=== PATIENT | male | born 1970 | race Caucasian/White ===

== ENCOUNTER 2021-10-18 06:10 | Day surgery (SDC) | payer BC ==
[~2021-10-18 06:10] MED LIST: Acetaminophen 325 MG Tab PO SCH; Lactated Ringers 1,000 ML IV SCH; Lidocaine 1%/Sod Bicarbonate in NS 8.4% 1 ML Syringe IDERM PRN; Pregabalin 25 MG Cap PO SCH; Sodium Chloride 0.9% 10 ML Syringe FLUSH PRN; oxyCODONE ER 10 MG TAB.ER PO SCH
[2021-10-18] MEDS ORDERED: Vancomycin 1 GM SDV ONE (06:19)
[2021-10-18] MEDS ORDERED: Rocuronium 50 MG/5 ML Vial ONE (06:24)
[2021-10-18] MEDS ORDERED: Propofol 200 MG/20 ML SDV ONE (06:24)
[2021-10-18] MEDS ORDERED: Ondansetron 4 MG/2 ML SDV ONE (06:24)
[2021-10-18] MEDS ORDERED: fentaNYL 100 MCG/2 ML SDV ONE ×2 (06:25→08:45)
[2021-10-18] MEDS ORDERED: Lidocaine 1% 6 ML ONE (06:25)
[2021-10-18] MEDS ORDERED: Midazolam 1 MG/ML 2 ML SDV ONE (06:25)
[2021-10-18] MEDS ORDERED: Ropivacaine 0.5% 5 MG/ML 30 ML SDV ONE (06:35)
[2021-10-18] MEDS ORDERED: EPINEPHrine 1 MG/ML SDV ONE (06:35)
--- NOTE | 2021-10-18 06:43 | PCM.PREANE ---
Preanesthetic Assessment - Procedure Proposed Procedure: left shoulder reverse total shoulder - Anesthesia/Transfusion/Family Hx Anesthesia History: Prior Anesthesia Without Reaction Family History of Anesthesia Reaction: No Transfusion History: No Prior Transfusion(s) - Review of Systems General: No Symptoms Pulmonary: No Symptoms Cardiovascular: No Symptoms Gastrointestinal: No Symptoms Neurological: No Symptoms Other: Reports: None - Physical Assessment NPO Status Date: 10/17/21 NPO Status Time: 20:00 Weight: 109.316 kg ASA Class: 2 Mental Status: Alert & Oriented x3 Airway Class: Mallampati = 3 Dentition: Reports: [place](s) Thyro-Mental Finger Breadths: 2 Mouth Opening Finger Breadths: 2 ROM/Head Extension: Limited/Partial (neck pain) Lungs: Clear to Auscultation, Normal Respiratory Effort Cardiovascular: Regular Rate, Regular Rhythm - Imaging/EKG Impressions: EKG NSR rate 80 - Allergies Allergies/Adverse Reactions: Allergies Allergy/AdvReac Type Severity Reaction Status Date / Time cefaclor Allergy Cannot Verified 10/17/21 18:23 Remember - Anesthesia Plan Pre-Op Medication Ordered: None PreAnesthesia Questionnaire HEENT History: Reports: Impaired Vision, Sinusitis, Other (See Below) Other HEENT History: impacted cerumen, left otitis cerumen, wears glasses Cardiovascular History: Reports: High Cholesterol, Other (See Below) Other Cardiovascular History: palpitation Respiratory History: Reports: Other (See Below) Other Respiratory History: URI, bronchitis Gastrointestinal History: Reports: GERD Genitourinary History: Reports: UTI, Recurrent [employer] History: Reports: None Musculoskeletal History: Reports: Other (See Below) Other Musculoskeletal History: arthralgia, arthritis, left hip pain, myalgias, bilateral shoulder pain Neurological History: Reports: Headaches, Chronic, Other (See Below) Other Neuro History: neck pain Psychiatric History: Reports: None Endocrine/Metabolic History: Reports: Hypothyroidism Hematologic History: Reports: None Immunologic History: Reports: None Oncologic (Cancer) History: Reports: None Dermatologic History: Reports: Other (See Below) Other Dermatologic History: delayed wound healing, herpes zoster - Infectious Disease History Infectious Disease History: Reports: None - Past Surgical History Head Surgeries/Procedures: Reports: None Cardiovascular Surgical History: Reports: None Respiratory Surgical History: Reports: None GI Surgical History: Reports: None Female Surgical History: Reports: None Male Surgical History: Reports: None Endocrine Surgical History: Reports: None Neurological Surgical History: Reports: Lumbar Spine Musculoskeletal Surgical History: Reports: None Oncologic Surgical History: Reports: None Dermatological Surgical History: Reports: None - SUBSTANCE USE Tobacco Use Status *Q: Current Every Day Tobacco User Tobacco Use Within Last Twelve Months: Snuff/Dip Second Hand Smoke Exposure: No Days Per Week of Alcohol Use: 1 Number of Drinks Per Day: 2 Total Drinks Per Week: 2 Recreational Drug Use History: No - HOME MEDS Home Medications: Home Meds Aspirin [Aspirin EC] 325 mg PO DAILY #30 tablet.dr 10/17/21 [Rx] Cholecalciferol (Vitamin D3) [Vitamin D3] 5,000 unit PO DAILY 10/17/21 [History] Cyclobenzaprine [Flexeril] 10 mg PO BID PRN #20 tab 10/17/21 [Rx] Multivitamin 1 tab PO DAILY 10/17/21 [History] SUMAtriptan succinate [Imitrex] 50 mg PO ASDIRECTED PRN 10/17/21 [History] oxyCODONE 5 - 10 mg PO Q4H PRN #40 tab 10/17/21 [Rx] - CURRENT (IN HOUSE) MEDS Current Meds: Current Medications Acetaminophen (Acetaminophen 325 Mg Tab) 975 mg PO ONETIME DAVID Stop: 10/18/21 12:00 Lactated Ringer's (Ringers, Lactated) 1,000 mls @ 125 mls/hr IV ASDIRECTED DAVID Stop: 10/18/21 23:00 Vancomycin HCl 1 gm/Vancomycin HCl 500 mg/ Sodium Chloride 500 mls @ 333 mls/hr IV PREPRO ONE Stop: 10/18/21 08:30 Lidocaine/Sodium Bicarbonate (Lidocaine 1%/Sod Bicarbonate In Ns 8.4% 1 Ml Syringe) 0.25 ml IDERM ONETIME PRN PRN Reason: Prior to IV Start Stop: 10/18/21 18:00 Oxycodone HCl (Oxycodone Er 10 Mg Tab.Er) 10 mg PO ONETIME DAVID Stop: 10/18/21 12:00 Pregabalin (Pregabalin 25 Mg Cap) 50 mg PO ONETIME DAVID Stop: 10/18/21 12:00 Sodium Chloride (Sodium Chloride 0.9% 10 Ml Syringe) 10 ml FLUSH ASDIRECTED PRN PRN Reason: Keep Vein Open Stop: 10/18/21 18:00 Discontinued Medications Epinephrine HCl (Epinephrine 1 Mg/Ml Sdv) Confirm Administered Dose 1 mg .ROUTE .STK-MED ONE Stop: 10/18/21 06:36 Fentanyl (Fentanyl 100 Mcg/2 Ml Sdv) Confirm Administered Dose 100 mcg .ROUTE .STK-MED ONE Stop: 10/18/21 06:26 Lidocaine HCl (Xylocaine-Mpf 1%) Confirm Administered Dose 6 mls @ as directed .ROUTE .STK-MED ONE Stop: 10/18/21 06:26 Midazolam HCl (Midazolam 1 Mg/Ml 2 Ml Sdv) Confirm Administered Dose 2 mg .ROUTE .STK-MED ONE Stop: 10/18/21 06:26 Ondansetron HCl (Ondansetron 4 Mg/2 Ml Sdv) Confirm Administered Dose 4 mg .ROUTE .STK-MED ONE Stop: 10/18/21 06:25 Propofol (Propofol 200 Mg/20 Ml Sdv) Confirm Administered Dose 200 mg .ROUTE .STK-MED ONE Stop: 10/18/21 06:25 Rocuronium [place] (Rocuronium 50 Mg/5 Ml Vial) Confirm Administered Dose 50 mg .ROUTE .STK-MED ONE Stop: 10/18/21 06:25 Ropivacaine (Ropivacaine 0.5% 5 Mg/Ml 30 Ml Sdv) Confirm Administered Dose 30 ml .ROUTE .STK-MED ONE Stop: 10/18/21 06:36 Tranexamic Acid (Tranexamic Acid 1,000 Mg/10 Ml Amp) Confirm Administered Dose 1,000 mg .ROUTE .STK-MED ONE Stop: 10/18/21 06:20 Vancomycin HCl (Pharmacy To Dose - Vancomycin) 1 dose .XX ONETIME ONE Stop: 10/17/21 15:52 Vancomycin HCl (Vancomycin 1 Gm Sdv) Confirm Administered Dose 1 gm .ROUTE .STK- MED ONE Stop: 10/18/21 06:20
[2021-10-18] MEDS ORDERED: Vancomycin 1 GM, Vancomycin 500 MG in Sodium Chloride 0.9% 500 ML IV ONE (07:00)
[2021-10-18] MEDS ORDERED: ceFAZolin 1 GM Vial ONE (07:32)
[2021-10-18] MEDS ORDERED: Lactated Ringers 1,000 ML ONE (08:18)
[2021-10-18] MEDS ORDERED: ePHEDrine 50 MG/ML SDV ONE (08:29)
[2021-10-18] MEDS ORDERED: Bupivacaine 0.25% 10 ML SDV ONE (08:46)
[2021-10-18] MEDS ORDERED: fentaNYL 100 MCG/2 ML SDV IVPUSH PRN (09:13)
--- NOTE | 2021-10-18 09:14 | PCM.POSTAN ---
POST ANESTHESIA ASSESSMENT - MENTAL STATUS Mental Status: Alert, Oriented - RESPIRATORY Respiratory Status: Respiratory Rate WNL, Airway Patent, O2 Saturation Stable, Supplemental Oxygen - CARDIOVASCULAR CV Status: Pulse Rate WNL, Blood Pressure Stable - GASTROINTESTINAL GI Status: No Symptoms - PAIN Pain Score: 0 - POST OP HYDRATION Hydration Status: Adequate & Stable - OBSERVATIONS Free Text/Narrative:: no anesthesia complications noted
--- NOTE | 2021-10-18 09:15 | CR ---
Left shoulder: 3 views of the left shoulder were obtained. Study was obtained in the operating room utilizing C-arm device. Study shows placement of a reverse left shoulder prosthesis. Underlying bony structure shows nothing acute. Inferior spurring is noted within the acromioclavicular joint. Fluoroscopy time given as 2.8 seconds. Impression: 1. Procedural study as described above. Diagnostic code #2
--- NOTE | 2021-10-18 09:19 | PCM.SN.2 ---
- Free Text/Narrative Note: Date: 10/18 Time Out:0658 Start: 657 Stop: 703 Current Procedure: Left interscalene block under US guidance for postoperative pain control requested by Dr. Lea. Patient chart reviewed, risk/benefits discussed with patient, consent obtained. Patient positioned supine, monitors/alarms on, oxygen placed via nasal cannula at 2 LPM. IV sedation administered: Versed 2 mg IV, Fentanyl 100 mcg IV given in preop prior to block placement. Left shoulder prepped with two chloropreps. Sterile drapes placed with aseptic technique noted. Under US guidance, right subclavian artery visualized along with the right brachial plexus. Plexus followed up to C6 cricoid level, and area localized with 2mls of 1% lidocaine. 22gauge 2 inch stimiplex needle advanced under US with 0.8mV with stimulation of biceps noted. Good stimulation noted with decreased voltage and absent at 0.3mVs. 1ml of Normal Saline injected with loss of stimulation noted to confirm needle not placed intraneurally. Incremental dosing of 5mls with negative aspiration noted prior to each injection of 0.5% ropivacaine with 1:200,000 epinephrine. Total volume=30mls. Please refer to nurses noted for vital signs. Ephraim Max CRNA
[2021-10-18] MEDS ORDERED: oxyCODONE 5 MG Tab PO PRN (09:53)
[2021-10-18] MEDS ORDERED: Cyclobenzaprine 10 MG Tab PO PRN (09:54)
--- NOTE | 2021-10-18 11:29 | CR ---
Left shoulder: Single AP view of the left shoulder was obtained. Comparison: Prior operative study performed on the same day (9:28 AM). Reverse left shoulder prosthesis is seen. Prosthesis appears aligned. Inferior spurring is seen within the acromioclavicular joint. No acute osseous abnormality is appreciated. Impression: 1. Satisfactory postoperative radiographic appearance of recently placed left shoulder prosthesis. 2. Inferior spurring within the acromioclavicular joint. Diagnostic code #2
[2021-10-18 12:23] VITALS: BP 137/88; PULSE 78
--- NOTE | 2021-10-18 14:22 | PCM48HPAN ---
Post Anesthesia Note - EVALUATION WITHIN 48HRS OF ANESTHETIC Vital Signs in Normal Range: Yes Patient Participated in Evaluation: Yes Respiratory Function Stable: Yes Airway Patent: Yes Cardiovascular Function Stable: Yes Hydration Status Stable: Yes Pain Control Satisfactory: Yes Nausea and Vomiting Control Satisfactory: Yes Mental Status Recovered: Yes Vital Signs: Last Vital Signs Temp 36.8 C 10/18/21 12:15 Pulse 78 10/18/21 12:15 Resp 16 10/18/21 12:15 BP 137/88 10/18/21 12:15 Pulse Ox 95 10/18/21 12:15 - COMMENTS/OBSERVATIONS Free Text/Narrative:: no anesthesia complications noted
--- NOTE | 2021-10-28 16:45 | PCM.OPNOTE ---
- General Post-Op/Procedure Note Date of Surgery/Procedure: 10/18/21 Operative Procedure(s): left reverse total shoulder arthroplasty Pre Op Diagnosis: left shoulder osteoarthrosis Post-Op Diagnosis: Same Anesthesia Technique: General ET Tube, Regional Block Primary Surgeon: Abdulkadir Lea Anesthesia Provider: Ephraim Max Channel Director: Sondra Rehman Channel Director: Tena Cedeno EBL in mLs: 150 Complications: None Condition: Good Free Text/Narrative:: 11 06 36+2
--- NOTE | 2021-10-29 08:37 | OR ---
DATE OF OPERATION: 10/18/2021 SURGEON: Abdulkadir Lea MD OPERATION PERFORMED: Left reverse total shoulder arthropathy. PREOPERATIVE DIAGNOSIS: Left shoulder osteoarthrosis. POSTOPERATIVE DIAGNOSIS: Left shoulder osteoarthrosis. ANESTHESIA: General endotracheal intubation with regional interscalene block. ANESTHESIA PROVIDER: Ephraim Max CRNA ASSISTANTS: Sondra Rehman PA-C and Tena Cedeno LPN. ESTIMATED BLOOD LOSS: 150 mL. COMPLICATIONS: None. CONDITION: Stable. IMPLANTS: 1. [place] size 12 reverse humeral stem. 2. [place] size 28 mm concentric baseplate. 3. Lo size 36, +2 glenosphere. DESCRIPTION OF PROCEDURE: The patient was identified in the preoperative holding area. Proper site was marked and identified by the surgeon. The patient was taken back to operating theater where after anesthesia the patient's left upper extremity was sterilely prepped and draped in the usual sterile fashion. OR time-out was performed. The patient received 2 g IV Ancef. He was placed in reverse Trendelenburg position. Standard deltopectoral incision was made. This was taken down to the cephalic vein. Cephalic vein was retracted laterally with the deltoid. Clavipectoral fascia was incised. Conjoined tendon was retracted medially. Anterior humeral circumflex vessels were ligated. Attention was turned to the biceps. A #2 FiberWire was used for biceps tenodesis at the level of the pectoralis. The biceps tendon was resected proximal to this all the way back to the glenoid. Peel down of the subscapularis tendon was done, and the humeral head was dislocated. Humeral head cut was completed and found to be adequate. Attention was turned to the glenoid. Anterior and posterior glenoid retractors were placed. Circumferential removal of the labrum was done as well as a partial capsulectomy. Guide pin was placed in a center-center position with roughly 5 degree inferior tilt. The 28 mm concentric reamer was used until there was a good smile sign. At this time, guide pin was removed. Central screw hole was measured, and the 28 mm concentric baseplate was compressed using the central compression screw and had adequate bite. Inferior and superior locking screws were then placed in divergent fashion. A 36, +2 glenosphere was then impacted into place. Attention was turned to the humerus. Starter awl was placed down the canal, and then the canal reamers were done up to a size 12, and then broaches were done up to a size 12, which was found to be rotationally and vertically stable. Calcar planer was then utilized. Trial implants for a 4 mm poly and 2 mm base were then trialed, had adequate worship of tension on the deltoid as well as conjoined tendon with full range of motion. No signs of instability. C-arm fluoroscopy showed implants to be well seated with no signs of fracture. At this time, trial implants were removed. The size 12 stem was then opened on the back table with the 4 mm polyethylene and a 2 mm construct. These were impacted into place. Shoulder was relocated. At this time, 1 L pulse lavage irrigation with Ancef was irrigated through the shoulder along with 400 mL of IrriSept irrigation. Topical tranexamic acid and vancomycin powder were applied. Periarticular injection was then completed. A 2-0 Vicryl was used subcutaneously, and Prineo was used for skin closure. The patient tolerated the procedure well and was sent to PACU in stable condition. MMODAL /[id number]
== END 2021-10-18 12:15 | disposition home or self-care (01) ==
LOC: JD.SDS 06:10 → EDSTATUS 12:00 → JD.SDS 12:15
PROVIDERS: ATTEND Orthopaedic Surgery
DX: M19.012 Primary osteoarthritis, left shoulder (principal); F17.210 Nicotine dependence, cigarettes, uncomplicated; E78.5 Hyperlipidemia, unspecified; G47.33 Obstructive sleep apnea (adult) (pediatric); G89.18 Other acute postprocedural pain; Z88.8 Allergy status to other drugs, medicaments and biological substances; Z79.899 Other long term (current) drug therapy
CPT/HCPCS: 01638; 64415; 73020-26-LT; 73020-LT; 76000; 76000-26; 76942; 97110-GP; 97161-GP; A9270-GY; C1713; C1769; C1776; J0171; J0690; J2250; J2405; J2704; J2795; J3010; J3370; J3490; J7040; J7120

== ENCOUNTER 2022-01-14 08:00 | Day surgery (SDC) | payer BC ==
[~2022-01-14 08:00] MED LIST changes: +Sodium Chloride 0.9% 10 ML Syringe FLUSH SCH
[2022-01-14] MEDS ORDERED: Propofol 200 MG/20 ML SDV ONE ×5 (09:07→12:05)
[2022-01-14] MEDS ORDERED: Lidocaine 1% 4 ML ONE (09:07)
[2022-01-14] MEDS ORDERED: fentaNYL 100 MCG/2 ML SDV ONE (09:11)
[2022-01-14] MEDS ORDERED: Midazolam 1 MG/ML 2 ML SDV ONE (09:11)
[2022-01-14] MEDS ORDERED: ceFAZolin 1 GM Vial ONE (09:18)
[2022-01-14] MEDS ORDERED: Lactated Ringers 1,000 ML ONE ×2 (11:10→12:10)
[2022-01-14] MEDS ORDERED: Ondansetron 4 MG/2 ML SDV IVPUSH PRN (11:39)
[2022-01-14] MEDS ORDERED: fentaNYL 100 MCG/2 ML SDV IVPUSH PRN (11:39)
[2022-01-14] MEDS ORDERED: ePHEDrine 50 MG/ML SDV ONE (11:46)
[2022-01-14] MEDS: Vancomycin 1 GM SDV ONE ×2 (11:47→12:09)
[2022-01-14] MEDS: Morphine 8 MG, EPINEPHrine 0.3 MG, Cefuroxime 750 MG, Ketorolac 30 MG, Sodium Chloride ... PRN ×10 (11:48→12:09)
[2022-01-14] MEDS ORDERED: Ondansetron 4 MG/2 ML SDV ONE (12:06)
[2022-01-14] MEDS ORDERED: Ketorolac 30 MG/ML SDV ONE (12:06)
[2022-01-14] MEDS ORDERED: oxyCODONE 5 MG Tab PO ONE (15:00)
[2022-01-14 15:57] VITALS: PULSE 80
[2022-01-14 15:58] VITALS: BP 127/71
== END 2022-01-14 15:50 | disposition home or self-care (01) ==
LOC: JD.SDS 08:00
PROVIDERS: ATTEND Orthopaedic Surgery
DX: M17.12 Unilateral primary osteoarthritis, left knee (principal); E78.5 Hyperlipidemia, unspecified; G47.33 Obstructive sleep apnea (adult) (pediatric); E03.9 Hypothyroidism, unspecified; G47.30 Sleep apnea, unspecified; G43.909 Migraine, unspecified, not intractable, without status migrainosus; Z88.8 Allergy status to other drugs, medicaments and biological substances; Z79.899 Other long term (current) drug therapy; Z98.890 Other specified postprocedural states
CPT/HCPCS: 27130; 36415; 73501; 86850; 86900; 86901; 97116; 97161; A9270; C1713; C1776; J0171; J0690; J0697; J1885; J2250; J2270; J2405; J2704; J3010; J3370; J7120; 01214